=== PATIENT | male | born 1960 | race Caucasian/White ===

== ENCOUNTER → 2020-07-11 | Outpatient (CLI) | payer BC | LOC: SJCVCIMAG 08:56 | PROVIDERS: ATTEND Internal Medicine | DX: R00.1 Bradycardia, unspecified (principal); R06.00 Dyspnea, unspecified; R53.83 Other fatigue; R07.9 Chest pain, unspecified; I25.10 Atherosclerotic heart disease of native coronary artery without angina pectoris; Z87.891 Personal history of nicotine dependence ==

== ENCOUNTER → 2020-07-31 | Outpatient (CLI) | payer BC, OTHER ==
[~2020-07-31] VITALS: Ht 188 cm; Wt 104.3 kg
[~2020-07-31] MED LIST: DEXILANT60 MG PO
[2020-07-31 08:33] VITALS: BP 126/87
[2020-07-31 08:56] LABS: HEMATOCRIT 44.5 % (42.0-52.0); HEMOGLOBIN 15.1 gm/dL (14.0-18.0); MCV 88.4 fL (80.0-100.0); RBC 5.03 mil/uL (4.50-6.00); RDW 13.7 % (10.5-14.5); WBC 4.2 thou/uL (4.0-11.0)
[2020-07-31 09:09] LABS: CALCIUM 9.3 mg/dL (8.5-10.1); CREATININE 1.2 mg/dL (0.7-1.3); POTASSIUM 4.5 mmol/L (3.5-5.1)
--- NOTE | 2020-07-31 09:21 | EKG ---
[place] [address] [facility] [place] [address] ELECTROCARDIOGRAM REPORT Name: NAIMA PEPPER [facility] [id number] Admission: 07/31/20 Attend Phys: Juan J García Discharge: Date of : 64 Report #: [id number] [facility] Test Date: 2020-07-31 Test Time: 08:20:56 Pat Name: NAIMA PEPPER Department: Room: Gender: Corporate Law Specialist: SBULNYDIA : 1960 Requested By: Juan J García Order Number: [id number] MD: Khanh Young Measurements Intervals [place] Rate: 59 P: 46 DE: 166 QRS: 21 QRSD: 90 T: 29 QT: 389 QTc: 386 Interpretive Statements Sinus bradycardia Otherwise no significant abnormality Baseline wander in lead(s) V1 No previous ECG available for comparison Electronically Signed On 07-31-2020 9:20:52 CDT by Khanh Young [email or web address] <ELECTRONICALLY SIGNED> By: Khanh Young MD, [facility] 07/31/20919 9 9 Khanh Young MD, FACC /EPI
--- NOTE | 2020-08-15 08:50 | CATHLAB ---
[facility] [place] [address] INVASIVE PROCEDURE REPORT Name: EVGENYNAIMA Morrow Room #: REG [facility] Brannon#: [id number] Admission: 07/31/20 Attend Phys: Juan J García Discharge: Date of : 64 Report #: [id number] THIS REPORT FOR: cc: Charles Torres Damon DO Lammoglia, Francisco J. MD ~ APPROVED REPORT Study performed: 07/31/2020 10:36:36 Patient Details Patient Status: Out-Patient Room #: The patient is a 60 year-old male Event Personnel Juan J García Pyrotechnician, Jammie Gudino RN RN, Melita Krishnamurthy RTR Scrub, Enriqueta Kline RTR Monitor Procedures Performed Art Access - R femoral artery* Left Heart Cath w/or w/o Coronaries [id number] [facility] [id number] Initial Mod Sed Same Phys/QHP Gr [id number] 85319 Mod Sed Same Phys/QHP Ea [id number] Hemostasis with Manual pressure, supervision conscious Indication Chest pain Procedure Narrative The Right Groin^ was infiltrated with 1% Lidocaine subcutaneous anesthesia. A PINNACLE 4FR Sheath #[id number] sheath was inserted into the RFA^. Coronary angiography was performed using coronary diagnostic catheters. The right coronary system was accessed and visualized with a JR4 catheter. The left coronary system was accessed and visualized with a JL4 catheter. The left ventricle was accessed and visualized with a JR4 catheter. Hemostasis was obtained with manual pressure following sheath removal without any complications. The patient tolerated the procedure well and there were no complications associated with the procedure. There was no hematoma. Intraoperative Conscious Sedation Sedation start time: 11:08 Case end Time: 11:41 [facility] [place] [address] INVASIVE PROCEDURE REPORT Name: NAIMA PEPPER Room #: REG [facility]#: [id number] Admission: 07/31/20 Attend Phys: Juan J Burns Discharge: Date of : 64 Report #: [id number] Versed 2 mg Fluoro Time: 2.20 minutes Dose: DAP 4809.30 cGycm2 749 mGy Contrast Type and Amount: Omnipaque 50 ml Coronary Angiography The patient's coronary anatomy is right dominant. Diagnostic Cath Left Main Left main is of normal origin moderate caliber long length which gives rise to a left anterior descending artery diagonal branch. Circumflex is not originating from the left main. No significant lesions are present LAD Moderate caliber type III vessel which courses on the anterior ventricular sulcus giving rise to septal diagonal branches only luminal irregularities. The first diagonal actually originates early on and courses on the anterolateral wall as to the subsequent diagonal. There is a total of 3 diagonal branches arise Diagonal 1 Moderate caliber vessel coursing on the anterolateral wall towards the apex bifurcating several times without significant high-grade lesions noted Diagonal 2 Small to moderate caliber vessel coursing on the lateral anterior wall free of high-grade disease Diagonal 3 Moderate caliber long bifurcating vessel coursing on the lateral and anterolateral aspect of the heart free of high-grade disease Circumflex A small vestigial branch is identified OM1 Originates from the distal right coronary artery small to moderate caliber without high-grade lesion OM2 Originates from the right coronary artery with small to moderate caliber no high-grade lesion Right Coronary Moderate caliber vessel normal origin gives rise moderate to large RV marginal branch prior to reaching the acute margin. And continues on giving rise to small posterior wall branch to posterior lateral branches and extends across the midline supplying the marginal distribution as described above. No significant lesions in R PDA Small caliber vessel without high-grade lesion Left Ventriculography Left Ventriculography was not performed. Hemodynamics The aortic pressure is 117/67 mmHg with a mean of 85 mmHg. The left ventricular pressure is 117/2 mmHg with a mean of mmHg. The left [facility] [address] [place] [address] INVASIVE PROCEDURE REPORT Name: NAIMA PEPPER Room #: [facility] [id number] Admission: 07/31/20 Attend Phys: Juan J Burns Discharge: Date of : 64 Report #: [id number] ventricular end diastolic pressure is 12 mmHg. Conclusion 1. Normal coronary arteries 2. 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 Normal hemodynamics Recommendations Cardiac Risk Reduction Program <ELECTRONICALLY SIGNED> By: Juan J García MD 08/15/2050 9 9 Juan J García MD /INF
== END | disposition home or self-care (01) ==
LOC: CATH 07:55
PROVIDERS: ATTEND Internal Medicine
DX: R07.9 Chest pain, unspecified (principal); R94.39 Abnormal result of other cardiovascular function study; K21.9 Gastro-esophageal reflux disease without esophagitis; Z98.890 Other specified postprocedural states; Z79.899 Other long term (current) drug therapy; Z82.49 Family history of ischemic heart disease and other diseases of the circulatory system